=== PATIENT | female | born 1995 | race Caucasian/White ===

== ENCOUNTER 2017-01-30 21:19 | Emergency (ER) | payer MEDICAID ==
[2017-01-30 21:40] VITALS: BP 148/78
--- NOTE | 2017-01-30 22:01 | EDM.PDOC ---
[id number]: RI SIDE PAIN Time Seen by Provider: 01/30/17 21:45 Source of Information: Reports: Patient History Limitations: Reports: No Limitations - History of Present Illness INITIAL COMMENTS - FREE TEXT/NARRATIVE: 21-year-old female who developed a very sudden onset of right lower quadrant pain and dizziness within the last hour. She just moved to town 2 days ago and is staying with relatives. No nausea or vomiting, no dysuria, she does have some pain radiate to the back. No fevers or chills. Onset: Sudden Duration: Hour(s): (Within the last hour) Location: Reports: Abdomen Quality: Reports: Stabbing Severity: Moderate Worsens with: Reports: Other (Painful to walk) Associated Symptoms: Denies: Chest Pain, Cough, Fever/Chills, Malaise, Nausea/ Vomiting, Shortness of Breath Right Lower Abdominal Pain Score (Numeric/FACES): 10 - Related Data Allergies Allergy/AdvReac Type Severity Reaction Status Date / Time No Known Allergies Allergy Verified 01/30/17 21:43 Home Meds: Home Meds NK [No Known Home Meds] 01/30/17 [History] Past Medical History Musculoskeletal History: Reports: Back Pain, Chronic Endocrine/Metabolic History: Reports: Obesity/BMI 30+ - Infectious Disease History Infectious Disease History: Reports: Chicken Pox, Shingles - Past Surgical History Other Musculoskeletal Surgeries/Procedures:: States she had the nerves in her lower back "Burned" for pain control Social & Family History - Tobacco Use Smoking Status *Q: Current Every Day Smoker Years of Tobacco use: 8 Packs/Tins Daily: 0.5 - Caffeine Use Caffeine Use: Reports: Energy Drinks - Recreational Drug Use Recreational Drug Use: No ED ROS GENERAL - Review of Systems Review Of Systems: See Below Constitutional: Denies: Fever, Chills, Malaise HEENT: Reports: No Symptoms Respiratory: Denies: Shortness of Breath Cardiovascular: Denies: Chest Pain GI/Abdominal: Reports: Abdominal Pain. Denies: Constipation, Nausea, Vomiting Skin: Reports: No Symptoms Neurological: Reports: Dizziness ED EXAM, GI/ABD - Physical Exam Exam: See Below Exam Limited By: No Limitations General Appearance: Alert, No Apparent Distress Eyes: Bilateral: Normal Appearance (No jaundice) Head: Atraumatic Respiratory/Chest: No Respiratory Distress Cardiovascular: Regular Rate, Rhythm GI/Abdominal Exam: Soft, Tender (Very tender with some moderate guarding in the right lower quadrant but no peritoneal irritation or tenderness to palpation of the left abdomen even referred pain) Neurological: Alert, Oriented Skin Exam: Warm, Dry Course - Vital Signs Last Recorded V/S: Last Vital Signs Temp 98.6 F 01/30/17 21:42 Pulse 90 01/30/17 21:42 Resp 20 01/30/17 21:42 BP 148/78 H 01/30/17 21:42 Pulse Ox 96 01/30/17 21:42 - Orders/Labs/Meds Orders: Active Orders 24 hr Category Date Time Status Abdomen Pelvis wo Cont [CT] Stat Exams 01/30/17 22:52 Taken CULTURE URINE [RM] Stat Lab 01/30/17 23:42 Received Labs: Laboratory Tests 01/30/17 01/30/17 01/30/17 Range/Units 22:10 22:10 22:16 WBC 9.6 (4.5-11.0) K/uL RBC 4.56 (3.30-5.50) M/uL Hgb 14.6 (12.0-15.0) g/dL Hct 42.4 (36.0-48.0) % MCV 93 (80-98) fL MCH 32 H (27-31) pg MCHC 34 (32-36) % Plt Count 240 (150-400) K/uL Neut % (Auto) 51 (36-66) % Lymph % (Auto) 36 (24-44) % Adams % (Auto) 10 H (2-6) % Eos % (Auto) 2 (2-4) % Baso % (Auto) 1 (0-1) % Sodium 143 (140-148) mmol/L Potassium 4.0 (3.6-5.2) mmol/L Chloride 109 H (100-108) mmol/L Carbon Dioxide 27 (21-32) mmol/L Anion Gap 11.0 (5.0-14.0) mmol/L BUN 13 (7-18) mg/dL Creatinine 0.9 (0.6-1.0) mg/dL Est Cr Clr Drug Dosing 81.11 mL/min Estimated GFR (MDRD) > 60 (>60) Glucose 103 (74-106) mg/dL Calcium 9.4 (8.5-10.1) mg/dL Total Bilirubin 0.1 L (0.2-1.0) mg/dL AST 17 (15-37) U/L ALT 49 (12-78) U/L Alkaline Phosphatase 61 (46-116) U/L Total Protein 7.7 (6.4-8.2) g/dL Albumin 3.5 (3.4-5.0) g/dL Globulin 4.2 H (2.3-3.5) g/dL Albumin/Globulin Ratio 0.8 L (1.2-2.2) Urine Color Urine Appearance Urine pH (4.5-8.0) Ur Specific [place] (1.008-1.030) Urine Protein (NEGATIVE) mg/dL Urine Glucose (UA) (NEGATIVE) mg/dL Urine Ketones (NEGATIVE) mg/dL Urine Occult Blood (NEGATIVE) Urine Nitrite (NEGATIVE) Urine Bilirubin (NEGATIVE) Urine Urobilinogen (NORMAL) mg/dL Ur Leukocyte Esterase (NEGATIVE) Urine RBC (0-5) Urine WBC (0-5) Ur Epithelial Cells Amorphous Sediment Urine Bacteria Urine Mucus Urine HCG, Qual Negative 01/30/17 Range/Units 22:16 WBC (4.5-11.0) K/uL RBC (3.30-5.50) M/uL Hgb (12.0-15.0) g/dL Hct (36.0-48.0) % MCV (80-98) fL MCH (27-31) pg MCHC (32-36) % Plt Count (150-400) K/uL Neut % (Auto) (36-66) % Lymph % (Auto) (24-44) % Adams % (Auto) (2-6) % Eos % (Auto) (2-4) % Baso % (Auto) (0-1) % Sodium (140-148) mmol/L Potassium (3.6-5.2) mmol/L Chloride (100-108) mmol/L Carbon Dioxide (21-32) mmol/L Anion Gap (5.0-14.0) mmol/L BUN (7-18) mg/dL Creatinine (0.6-1.0) mg/dL Est Cr Clr Drug Dosing mL/min Estimated GFR (MDRD) (>60) Glucose (74-106) mg/dL Calcium (8.5-10.1) mg/dL Total Bilirubin (0.2-1.0) mg/dL AST (15-37) U/L ALT (12-78) U/L Alkaline Phosphatase (46-116) U/L Total Protein (6.4-8.2) g/dL Albumin (3.4-5.0) g/dL Globulin (2.3-3.5) g/dL Albumin/Globulin Ratio (1.2-2.2) Urine Color Yellow Urine Appearance Cloudy Urine pH 6.0 (4.5-8.0) Ur Specific [place] 1.025 (1.008-1.030) Urine Protein Negative (NEGATIVE) mg/dL Urine Glucose (UA) Normal (NEGATIVE) mg/dL Urine Ketones Negative (NEGATIVE) mg/dL Urine Occult Blood Moderate (NEGATIVE) Urine Nitrite Negative (NEGATIVE) Urine Bilirubin Small (NEGATIVE) Urine Urobilinogen Normal (NORMAL) mg/dL Ur Leukocyte Esterase Large (NEGATIVE) Urine RBC 5-10 H (0-5) Urine WBC 30-40 H (0-5) Ur Epithelial Cells Moderate Amorphous Sediment Not seen Urine Bacteria Many Urine Mucus Moderate Urine HCG, Qual Meds: Medications Discontinued Medications Generic Name Dose Route Start Last Admin Trade Name Freq PRN Reason Stop Dose Admin Ketorolac Tromethamine 60 mg 01/30/17 23:41 01/30/17 23:47 Toradol IM 01/30/17 23:42 60 mg ONETIME ONE Administration - Re-Assessments/Exams Free Text/Narrative Re-Assessment/Exam: 01/30/17 22:00 CBC, CMP and UA were obtained. 01/30/17 23:41 CBC and CMP were entirely normal. UA showed a few bacteria but also epithelial cells. This was cultured. Patient continued to have discomfort so a CT of her abdomen was obtained and was also entirely normal. She was given 60 mg of Toradol IM, asked to follow-up in the next day or 2 if not improving and she will be informed of the urine culture results. Departure - Departure Time of Disposition: 00:01 Disposition: Home, Self-Care 01 Condition: Good Clinical Impression: Abdominal pain Qualifiers: Abdominal location: right lower quadrant Qualified Code(s): R10.31 - Right lower quadrant pain - Discharge Information Instructions: Abdominal Pain, Adult, [id number] Referrals: PCP,None [Primary Care Provider] - Forms: ED Department Discharge Care Plan Goals: Rest tonight, increase diet and activity tomorrow as tolerated and return if not improving satisfactorily. - My Orders Last 24 Hours: My Active Orders 01/30/17 22:52 Abdomen Pelvis wo Cont [CT] Stat 01/30/17 23:42 CULTURE URINE [RM] Stat - Assessment/Plan Last 24 Hours: My Active Orders 01/30/17 22:52 Abdomen Pelvis wo Cont [CT] Stat 01/30/17 23:42 CULTURE URINE [RM] Stat
[2017-01-30] MEDS ORDERED: Ketorolac 60 MG/2 ML SDV IM ONE (23:41)
== END 2017-01-31 00:01 | disposition home or self-care (01) ==
LOC: JP.ED 21:19
DX: R10.31 Right lower quadrant pain (principal); F17.210 Nicotine dependence, cigarettes, uncomplicated; E66.9 Obesity, unspecified
CPT/HCPCS: 36415; 74176; 80053; 81001; 81025; 85025; 87086; 96372; 99284; J1885

== ENCOUNTER 2017-02-04 20:26 | Emergency (ER) | payer MEDICAID ==
[2017-02-04 22:33] VITALS: BP 121/73
--- NOTE | 2017-02-04 23:02 | EDM.PDOC ---
ED HPI GENERAL MEDICAL PROBLEM - General Chief Complaint: Flank Pain Stated Complaint: R SIDE PAIN Time Seen by Provider: 02/04/17 21:58 Source of Information: Reports: Patient History Limitations: Reports: No Limitations - History of Present Illness INITIAL COMMENTS - FREE TEXT/NARRATIVE: This lady comes in complaining of right lower quadrant abdominal pain and right flank pain. She was seen a few days ago in this ER for the same thing and a abdominal CT labs and urinalysis were all normal. It was thought that her urine was contaminated. It was cultured and just grew out mixed jessi. The patient said she started work at [employer] yesterday and is doing a lot of standing and today she was having right flank pain and right lower quadrant pain and she felt lightheaded. This brought her to the emergency department. 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: Musculoskeletal History: Reports: Back Pain, Chronic Endocrine/Metabolic History: Reports: Obesity/BMI 30+ - Infectious Disease History Infectious Disease History: Reports: Chicken Pox, Shingles - Past Surgical History Other Musculoskeletal Surgeries/Procedures:: States she had the nerves in her lower back "Burned" for pain control Social & Family History - Tobacco Use Smoking Status *Q: Light Tobacco Smoker Years of Tobacco use: 4 Packs/Tins Daily: 0.4 - Caffeine Use Caffeine Use: Reports: Energy Drinks - Recreational Drug Use Recreational Drug Use: No ED ROS GENERAL - Review of Systems Review Of Systems: ROS reveals no pertinent complaints other than HPI. ED EXAM, GI/ABD - Physical Exam Exam: See Below Exam Limited By: No Limitations General Appearance: Alert, Mild Distress, Obese, Other (This lady grasps her right lower quadrant when she moves around and especially when she stands) Eyes: Bilateral: Normal Appearance Respiratory/Chest: Lungs Clear Cardiovascular: Regular Rate, Rhythm, No Murmur GI/Abdominal Exam: Normal Bowel Sounds, Soft, Other (Moderate tenderness right lower quadrant) Back Exam: Other (Moderate tenderness to the musculature to the right lower back and inferior to the iliac crest on the right. There is no CVA tenderness.) Extremities: Normal Inspection Neurological: Alert, Oriented Course - Vital Signs Last Recorded V/S: Last Vital Signs Temp 37.4 C 02/04/17 21:18 Pulse 96 02/04/17 22:20 Resp 20 02/04/17 22:20 BP 121/73 02/04/17 22:20 Pulse Ox 100 02/04/17 22:20 - Orders/Labs/Meds Labs: Laboratory Tests 02/04/17 Range/Units 22:07 Urine Color Yellow Urine Appearance Cloudy Urine pH 8.0 (4.5-8.0) Ur Specific [place] 1.015 (1.008-1.030) Urine Protein Negative (NEGATIVE) mg/dL Urine Glucose (UA) Normal (NEGATIVE) mg/dL Urine Ketones Negative (NEGATIVE) mg/dL Urine Occult Blood Moderate (NEGATIVE) Urine Nitrite Negative (NEGATIVE) Urine Bilirubin Negative (NEGATIVE) Urine Urobilinogen Normal (NORMAL) mg/dL Ur Leukocyte Esterase Large (NEGATIVE) Urine RBC 5-10 H (0-5) Urine WBC 20-30 H (0-5) Ur Epithelial Cells Moderate Amorphous Sediment Few Urine Bacteria Few Urine Mucus Few Urine Other See note Urinalysis Comment See note - Re-Assessments/Exams Free Text/Narrative Re-Assessment/Exam: 02/04/17 23:03 I reviewed the labs and CT from her recent ER visit. There is a moderate amount of stool in the cecum but the rest of the colon is clear. The amount of stool present there appears to be enough to cause pain. Urine culture done at the time shows mixed jessi. Today's urinalysis shows trichomonas. Her exam today is consistent with constipation located in the cecum and muscle spasm of the right lower back Departure - Departure Time of Disposition: 23:04 Disposition: Home, Self-Care 01 Condition: Fair Clinical Impression: Low back pain, Constipation, Trichomonas vaginalis infection - Discharge Information Forms: ED Department Discharge Additional Instructions: The pain in the right lower part of your abdomen appears to be from some constipation at the very beginning of your large intestine. This is very very common. To alleviate this use a laxative tonight such as milk of Magnesia. This will loosen up the stool and cause it to pass found down through the colon. To prevent this in the future eat a high fiber diet. This can be easily done by eating a large bowl of raisin bran cereal once or twice daily. Which you're looking for is insoluble fiber. This will be listed on the package the best fiber cereals will have about 10 grams of insoluble fiber per serving. You appear to have some muscle spasm in the right side of your lower back. For this you may use Tylenol and ibuprofen together. Just follow the package instructions for each. They may be taken at the same time. You also have an infection with Trichomonas. This is a small organism that causes a lot of vaginal discharge, foul odor and itching. It is also transmitted sexually. Take the antibiotic Flagyl or metronidazole to get rid of this. Your partner should also be treated to prevent reinfecting you. Don't drink any alcohol while taking the Flagyl since that will make you sick
== END 2017-02-04 23:36 | disposition home or self-care (01) ==
LOC: JP.ED 20:26
DX: A59.01 Trichomonal vulvovaginitis (principal); K59.00 Constipation, unspecified; M62.830 Muscle spasm of back; F17.210 Nicotine dependence, cigarettes, uncomplicated; E66.9 Obesity, unspecified; Z68.42 Body mass index [BMI] 45.0-49.9, adult
CPT/HCPCS: 81001; 99283; 99284

== ENCOUNTER 2017-02-12 21:20 | Emergency (ER) | payer MEDICAID ==
[2017-02-12 21:36] VITALS: BP 157/95
--- NOTE | 2017-02-12 22:48 | EDM.PDOC ---
ED HPI GENERAL MEDICAL PROBLEM - General Chief Complaint: Gastrointestinal Problem Stated Complaint: UNABLE TO EAT WITHOUT GETTING NAUSEA Time Seen by Provider: 02/12/17 21:30 Source of Information: Reports: Patient History Limitations: Reports: No Limitations - History of Present Illness INITIAL COMMENTS - FREE TEXT/NARRATIVE: nausea with meal; This is a 21 year old female present to ER with friend, reports has been taking Metroniazole for the past 6 days for vaginal infection. denies any other concerns. Onset: Gradual Duration: Day(s): (6) Location: Reports: Generalized Quality: Reports: Other (nausea for 6 days.) Severity: Mild Improves with: Reports: None Worsens with: Reports: Medication Associated Symptoms: Reports: No Other Symptoms - Related Data Allergies Allergy/AdvReac Type Severity Reaction Status Date / Time No Known Allergies Allergy Verified 02/04/17 21:21 Home Meds: Home Meds Etonogestrel [Nexplanon] 02/04/17 [History] metroNIDAZOLE [Metronidazole] 500 mg PO TID 02/12/17 [History] Past Medical History Genitourinary History: Reports: UTI, Recurrent, Other (See Below) Other Genitourinary History: hx of kidney infection 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: , Other (See Below) Other OB/BYN History: currently being treated for STD along with UTI Musculoskeletal History: Reports: Back Pain, Chronic Psychiatric History: Reports: Anxiety Endocrine/Metabolic History: Reports: Obesity/BMI 30+ - Infectious Disease History Infectious Disease History: Reports: Chicken Pox, Shingles - Past Surgical History Female Surgical History: Reports: None Other Musculoskeletal Surgeries/Procedures:: States she had the nerves in her lower back "Burned" for pain control Social & Family History - Tobacco Use Smoking Status *Q: Current Every Day Smoker Years of Tobacco use: 4 Packs/Tins Daily: 0.5 - Caffeine Use Caffeine Use: Reports: Energy Drinks - Alcohol Use Days Per Week of Alcohol Use: 1 Number of Drinks Per Day: 4 Total Drinks Per Week: 4 Date of Last Drink: 02/11/17 Time of Last Drink: 22:00 - Recreational Drug Use Recreational Drug Use: No - Living Situation & Occupation Living situation: Reports: with Significant Other Occupation: Employed ED ROS GENERAL - Review of Systems Review Of Systems: See Below Constitutional: Reports: No Symptoms GI/Abdominal: Reports: Nausea : Reports: No Symptoms, Other (reports nausea ) Musculoskeletal: Reports: No Symptoms ED EXAM, GENERAL - Physical Exam Exam: See Below Exam Limited By: No Limitations General Appearance: Alert, WD/WN, No Apparent Distress GI/Abdominal: Normal Bowel Sounds, Soft, Non-Tender, No Organomegaly, No Distention, No Mass (Female) Exam: Deferred Rectal (Female) Exam: Deferred Psychiatric: Normal Affect, Normal Mood Skin Exam: Warm, Dry, Intact, Normal Color, No Rash Lymphatic: No Adenopathy Course - Vital Signs Last Recorded V/S: Last Vital Signs Temp 37.4 C 02/12/17 21:34 Pulse 108 H 02/12/17 21:34 Resp 16 02/12/17 21:34 BP 157/95 H 02/12/17 21:34 Pulse Ox 98 02/12/17 21:34 - Orders/Labs/Meds Labs: Laboratory Tests 02/12/17 02/12/17 Range/Units 22:10 22:12 Urine Color Yellow Urine Appearance Cloudy Urine pH 5.0 (4.5-8.0) Ur Specific [place] 1.025 (1.008-1.030) Urine Protein Negative (NEGATIVE) mg/dL Urine Glucose (UA) Normal (NEGATIVE) mg/dL Urine Ketones Negative (NEGATIVE) mg/dL Urine Occult Blood Moderate (NEGATIVE) Urine Nitrite Negative (NEGATIVE) Urine Bilirubin Negative (NEGATIVE) Urine Urobilinogen Normal (NORMAL) mg/dL Ur Leukocyte Esterase Small (NEGATIVE) Urine RBC 0-5 (0-5) Urine WBC 10-20 H (0-5) Ur Epithelial Cells Many Amorphous Sediment Not seen Urine Bacteria Many Urine Mucus Rare Urine HCG, Qual Negative Departure - Departure Time of Disposition: 22:59 Disposition: Home, Self-Care 01 Condition: Good Clinical Impression: Drug-induced nausea and vomiting - Discharge Information Instructions: Nausea and Vomiting, Adult, [id number] Referrals: PCP,None [Primary Care Provider] - Forms: ED Department Discharge Care Plan Goals: Nausea most likely due to Metronizole therapy -[facility] Zofran 4 mg evry 8 hours as needed for nausea -try to take medicate with food, such as toast or bread. -avoid alcohol products while taking Metronizole return to clinic or er if not improved or symptoms worsen. Insurance issue Zofran; co-pay too expensive will order phenergan 25 mg po tid prn - Problem List & Annotations (1) Drug-induced nausea and vomiting SNOMED Code(s): 812854904 Code(s): R11.2 - NAUSEA WITH VOMITING, UNSPECIFIED; T50.905A - ADVERSE EFFECT OF UNSP DRUG/MEDS/BIOL SUBST, INIT Status: Acute Priority: High - Problem List Review Problem List Initiated/Reviewed/Updated: Yes - Assessment/Plan Plan: Nausea most likely due to Metronizole therapy -[facility] Zofran 4 mg evry 8 hours as needed for nausea -try to take medicate with food, such as toast or bread. -avoid alcohol products while taking Metronizole return to clinic or er if not improved or symptoms worsen.
== END 2017-02-12 22:59 | disposition home or self-care (01) ==
LOC: JP.ED 21:20
DX: R11.2 Nausea with vomiting, unspecified (principal); F41.9 Anxiety disorder, unspecified; F17.210 Nicotine dependence, cigarettes, uncomplicated; E66.9 Obesity, unspecified; Z68.41 Body mass index [BMI] 40.0-44.9, adult; Z98.890 Other specified postprocedural states; Z87.440 Personal history of urinary (tract) infections
CPT/HCPCS: 81001; 81025; 99284